=== PATIENT | male | born 1995 | race Caucasian/White ===

== ENCOUNTER 2017-07-26 21:44 | Emergency (ER) | payer MEDICAID ==
[~2017-07-26] VITALS: Ht 188 cm; Wt 60.0 kg
[~2017-07-26 21:44] MED LIST: BENT20TA PO; PANT20 PO; PROM25TA5 PO
[2017-07-26 21:46] VITALS: BP 116/70; PULSE 95; RESP 16; TEMP 99.3; O2SAT 98
--- NOTE | 2017-07-26 23:38 | RADRPT ---
EXAM DATE/TIME: 07/26/2017 23:39 [place] COMPARISON: No previous studies available for comparison. INDICATIONS : Chest pain. MEDICAL HISTORY : None. SURGICAL HISTORY : None. ENCOUNTER: Initial ACUITY: 1 day PAIN SCORE: 7/10 LOCATION: Bilateral chest FINDINGS: PA and lateral views of the chest demonstrate the lungs to be symmetrically aerated without evidence of mass, infiltrate or effusion. The cardiomediastinal contours are unremarkable. Osseous structure s are intact. CONCLUSION: No acute disease. Keenan Irene MD on July 26, 2017 at 23:36 Board Certified Radiologist. This report was verified electronically.
[2017-07-26 23:50] VITALS: BP 122/75; PULSE 86; RESP 18; O2SAT 98
[2017-07-26 23:56] VITALS: RESP 16; O2SAT 99
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
[2017-07-27 00:19] LABS: AUTOMATED NEUTROPHIL # 13.5 TH/MM3 (1.8-7.7); BASOPHIL # 0.1 TH/MM3 (0-0.2); BASOPHIL % 0.6 % (0.0-2.0); EOSINOPHIL # 0.1 TH/MM3 (0-0.4); EOSINOPHIL % 0.7 % (0.0-4.0); HEMATOCRIT 46.8 % (39.0-51.0); HEMO FLAGS DIFF FINAL; LYMPH % 12.5 % (9.0-44.0); LYMPHOCYTE # 2.1 TH/MM3 (1.0-4.8); MEAN CELL VOLUME 92.1 FL (80.0-100.0); MEAN CORPUSCULAR HEMOGLOBIN 31.6 PG (27.0-34.0); MEAN CORPUSCULAR HGB CONC 34.3 % (32.0-36.0); MONO % 5.6 % (0.0-8.0); NEUT % 80.6 % (16.0-70.0); PLATELET COUNT 199 TH/MM3 (150-450); RED BLOOD COUNT 5.09 MIL/MM3 (4.50-5.90); RED CELL DISTRIBUTION WIDTH 13.4 % (11.6-17.2); WHITE BLOOD COUNT 16.8 TH/MM3 (4.0-11.0)
[2017-07-27 00:22] LABS: ANION GAP 7 MEQ/L (5-15); BICARBONATE 28.4 MEQ/L (21.0-32.0); BLOOD UREA NITROGEN 8 MG/DL (7-18); CHLORIDE 105 MEQ/L (98-107); GLOMERULAR FILTRATION RATE 92 ML/MIN (>89); SODIUM (NA) 140 MEQ/L (136-145)
[2017-07-27] MEDS ORDERED: DICL75TA PO (00:41)
[2017-07-27] MEDS ORDERED: AZIT250T3 PO (00:41)
--- NOTE | 2017-07-27 09:57 | EKG ---
Date Performed: 07/26/2017 Time Performed: 22:12:16 PTAGE: 21 years EKG: Sinus rhythm NONSPECIFIC T-WAVE ABNORMALITY BORDERLINE ECG PREVIOUS TRACING : 12/23/2013 08.49 Compared to the prior study, nonspecific T-wave changes are now present. DOCTOR: Angus Hampton Interpretating Date/Time 07/27/2017 09:55:38
[2017-07-28] MEDS ORDERED: ZYPR5TAB PO (12:03)
[2017-07-28] MEDS ORDERED: VIST50CA PO (12:04)
== END 2017-07-27 01:03 | disposition home or self-care (01) ==
LOC: NEPD 21:44
DX: R09.1 Pleurisy (principal); R94.31 Abnormal electrocardiogram [ECG] [EKG]
CPT/HCPCS: 71020; 80048; 83690; 83735; 84484; 85025; 85379; 93005

== ENCOUNTER 2017-07-27 11:31 | Emergency (ER) | payer MEDICAID, OTHER ==
[~2017-07-27 11:31] MED LIST changes: +AZIT250T3 PO; -BENT20TA PO; +DICL75TA PO; -PANT20 PO; -PROM25TA5 PO
[2017-07-27 11:38] VITALS: BP 110/66; PULSE 106; RESP 16; TEMP 98.1; O2SAT 96
[2017-07-27 12:20] LABS: AUTOMATED NEUTROPHIL # 12.8 TH/MM3 (1.8-7.7); BASOPHIL % 0.2 % (0.0-2.0); EOSINOPHIL # 0.2 TH/MM3 (0-0.4); EOSINOPHIL % 1.6 % (0.0-4.0); HEMATOCRIT 48.2 % (39.0-51.0); HEMO FLAGS DIFF FINAL; LYMPH % 11.7 % (9.0-44.0); LYMPHOCYTE # 1.9 TH/MM3 (1.0-4.8); MEAN CELL VOLUME 92.6 FL (80.0-100.0); MEAN CORPUSCULAR HEMOGLOBIN 31.4 PG (27.0-34.0); MEAN CORPUSCULAR HGB CONC 33.9 % (32.0-36.0); NEUT % 80.5 % (16.0-70.0); PLATELET COUNT 220 TH/MM3 (150-450); RED BLOOD COUNT 5.21 MIL/MM3 (4.50-5.90); RED CELL DISTRIBUTION WIDTH 13.1 % (11.6-17.2); WHITE BLOOD COUNT 15.9 TH/MM3 (4.0-11.0)
[2017-07-27 12:26] LABS: BICARBONATE 26.4 MEQ/L (21.0-32.0); POTASSIUM 3.6 MEQ/L (3.5-5.1)
--- NOTE | 2017-07-27 12:55 | PD ---
HPI Chief Complaint: Psychiatric Symptoms Time Seen by Provider: 11:56 Travel History International Travel<30 days: No Contact w/Intl Traveler<30days: No Traveled to known affect area: No History of Present Illness HPI 21-year-old male brought in under [employer] act for making suicidal statements to his mother. Patient has history of bipolar, anxiety, ADHD. She reports he's been off his meds for over a year. He reports this morning he went to see a new doctor to attempt to go back on his psychiatric medications, but the visit apparently didn't go well causing him to become angry and make statements that he "wanted to shoot himself". Patient denies suicidal ideation during my interview. He states he made this statement because he was angry. [facility], [facility] Past Medical History ADD: Yes ADHD: Yes (ADHD) Bipolar Disorder: Yes Anxiety: Yes Cardiovascular Problems: Yes (heart murmur) Diabetes: No Medical other: Yes (STATES TREATED LAST NIGHT FOR CHEST PAIN) Psychiatric: Yes (PT STATES BIPOLAR AND ADHD) Immunizations Current: Yes Seizures: No Thyroid Disease: No Ulcer: No Past Surgical History Other Surgery: Yes (RIGHT INDEX FINGER PRIOR SX FOR REATTACHMENT AT AGE 9) Social History Alcohol Use: No Tobacco Use: Yes Substance Use: Yes (MARIJUANA) Allergies-Medications (Allergen,Severity, Reaction): Coded Allergies: red dye (Verified Allergy, Unknown, 07/27/17) Reported Meds & Prescriptions Reported Meds & Active Scripts Active Azithromycin 250 Mg Tab 250 Mg PO DIRECTED Take 2 tabs (500 mg) on day 1 then 1 tab daily x [address] (Diclofenac Sodium) 75 Mg Tabdr 75 Mg PO BID PRN Review of Systems Except as stated in HPI: all other systems reviewed are Neg Physical Exam Narrative GENERAL: Well-nourished, well-developed patient. SKIN: Focused skin assessment warm/dry. HEAD: Normocephalic. EYES: No scleral icterus. No injection or drainage. NECK: Supple, trachea midline. No JVD or lymphadenopathy. CARDIOVASCULAR: Regular rate and rhythm without murmurs, gallops, or rubs. RESPIRATORY: Breath sounds equal bilaterally. No accessory muscle use. GASTROINTESTINAL: Abdomen soft, non-tender, nondistended. MUSCULOSKELETAL: No cyanosis, or edema. BACK: Nontender without obvious deformity. No CVA tenderness. PSYCHIATRIC: No delusional thought processes. No hallucinations. Data Data Last Documented VS Vital Signs Date Time Temp Pulse Resp B/P (MAP) Pulse Ox O2 Delivery O2 Flow Rate FiO2 07/27/17 17:30 80 18 116/70 (85) 96 Room Air 07/27/17 11:38 98.1 Orders Orders Complete Blood Count With Diff (07/27/17 11:37) Psych Screen (07/27/17 11:37) Drug Screen, Random Urine (07/27/17 11:37) Basic Metabolic Panel (Bmp) (07/27/17 11:37) Diet Regular Basic (07/27/17 Dinner) Hydroxyzine Pamoate (Vistaril) (07/27/17 18:15) Olanzapine (Zyprexa) (07/27/17 18:45) Labs Laboratory Tests Test 07/27/17 11:45 07/27/17 11:47 White Blood Count 15.9 TH/MM3 Red Blood Count 5.21 MIL/MM3 Hemoglobin 16.4 GM/DL Hematocrit 48.2 % Mean Corpuscular Volume 92.6 FL Mean Corpuscular Hemoglobin 31.4 PG Mean Corpuscular Hemoglobin Concent 33.9 % Red Cell Distribution Width 13.1 % Platelet Count 220 TH/MM3 Mean Platelet Volume 9.5 FL Neutrophils (%) (Auto) 80.5 % Lymphocytes (%) (Auto) 11.7 % Monocytes (%) (Auto) 6.0 % Eosinophils (%) (Auto) 1.6 % Basophils (%) (Auto) 0.2 % Neutrophils # (Auto) 12.8 TH/MM3 Lymphocytes # (Auto) 1.9 TH/MM3 Monocytes # (Auto) 0.9 TH/MM3 Eosinophils # (Auto) 0.2 TH/MM3 Basophils # (Auto) 0.0 TH/MM3 CBC Comment DIFF FINAL Differential Comment Blood Urea Nitrogen 7 MG/DL Creatinine 1.00 MG/DL Random Glucose 102 MG/DL Calcium Level 9.0 MG/DL Sodium Level 138 MEQ/L Potassium Level 3.6 MEQ/L Chloride Level 105 MEQ/L Carbon Dioxide Level 26.4 MEQ/L Anion Gap 7 MEQ/L Estimat Glomerular Filtration Rate 96 ML/MIN Urine Opiates Screen NEG Urine Barbiturates Screen NEG Urine Amphetamines Screen NEG Urine Benzodiazepines Screen NEG Urine Cocaine Screen NEG Urine Cannabinoids Screen POS MDM Medical Decision Making Medical Screen Exam Complete: Yes Emergency Medical Condition: Yes Differential Diagnosis suicidal ideation, electrolyte abnormality, mood disorder Narrative Course 21-year-old male brought in under O[employer]a act for making suicidal statements to his mother. Patient has history of bipolar, anxiety, ADHD. She reports he's been off his meds for over a year. He reports this morning he went to see a new doctor to attempt to go back on his psychiatric medications, but the visit apparently didn't go well causing him to become angry and make statements that he "wanted to shoot himself". Patient denies suicidal ideation during my interview. He states he made this statement because he was angry. Patient denies any medical complaint. Patient will be evaluated in the emergency department and once medically cleared will receive psychiatric screening. Patient is agreeable to this plan. CBC: WBC 15 which is down from 16.4 yesterday when patient was seen for pleurisy CMP: Unremarkable Tox screen: Positive for cannabis Patient is medically cleared. Sera Jewell Jul 27, 2017 12:55
[2017-07-27 17:30] VITALS: BP 116/70; PULSE 80; RESP 18; O2SAT 96
[2017-07-27] MEDS ORDERED: OLANZapine 5 MG TAB PO ONE (18:45)
[2017-07-28 06:17] VITALS: BP 124/56; PULSE 82; RESP 18; O2SAT 99
--- NOTE | 2017-07-28 12:01 | PD ---
History of Present Illness Chief Complaint: Psychiatric Symptoms Time Seen by Provider: 11:30 Travel History International Travel<30 Days: No Contact w/Intl Traveler<30days: No Known affected area: No Legal Status Legal Status: Ochoa Act Ochoa Act Signed By: Michael Melendrez Ochoa Act Comment: BA signed by: DULCE PLASCENCIA Badge#[id number], Case#[id number], 07/27/17, 1055am History of Present Illness: 21-year-old male brought in under a Ochoa act for threatening to shoot himself. Currently, patient denies any suicidal or homicidal ideation, plan or intent. He is calm, pleasant and cooperative. His cognition is intact and he has no psychotic symptoms. He is willing to return to the outpatient psychiatrist for future treatment. He is verbally filiberto for safety and he is competent to do so. He states the medicines he took last night were helpful to him and he would like prescriptions for them. This physician provided those prescriptions with informed consent. PFSH Past Medical History ADD: Yes ADHD: Yes (ADHD) Bipolar Disorder: Yes Anxiety: Yes Cardiovascular Problems: Yes (heart murmur) Diabetes: No Medical other: Yes (STATES TREATED LAST NIGHT FOR CHEST PAIN) Psychiatric: Yes (PT STATES BIPOLAR AND ADHD) Immunizations Current: Yes Seizures: No Thyroid Disease: No Ulcer: No Past Surgical History Other Surgery: Yes (RIGHT INDEX FINGER PRIOR SX FOR REATTACHMENT AT AGE 9) Psychiatric History Psychiatric History Hx Psychiatric Treatment: Advises he was admitted to [facility] as a teen, cannot say why. This physician sees no significant objective clinical evidence of bipolar disorder or other mood disorders at this time. History of Inpatient Treatment: Yes Guns or firearms in home: Yes Social History Hx Alcohol Use: No Hx Tobacco Use: Yes Hx Substance Use: No Other Substances Used: Pt admits to using marijuana Hx of Substance Use Treatment: No Allergies-Medications (Allergen,Severity, Reaction): Coded Allergies: red dye (Verified Allergy, Unknown, 07/27/17) Reported Meds & Prescriptions Reported Meds & Active Scripts Active Azithromycin 250 Mg Tab 250 Mg PO DIRECTED Take 2 tabs (500 mg) on day 1 then 1 tab daily x [address] (Diclofenac Sodium) 75 Mg Tabdr 75 Mg PO BID PRN Review of Systems Except as stated in HPI: all other systems reviewed are Neg Mental Status Examination Appearance: Appropriate Consciousness: Alert Orientation: x4 Motor Activity: Normal gait Speech: Unremarkable Language: Adequate Fund of Knowledge: Adequate Attention and Concentration: Adequate Memory: Unremarkable Mood: Appropriate Affect: Appropriate Thought Process & Associations: Intact Thought Content: Appropriate Hallucination Type: None Delusion Type: None Suicidal Ideation: No Suicidal Plan: No Suicidal Intention: No Homicidal Ideation: No Homicidal Plan: No Homicidal Intention: No Insight: Adequate Judgment: Adequate MDM Medical Decision Making Medical Record Reviewed: Yes Assessment/Plan Patient interviewed at bedside, medical record reviewed and case discussed with nurse Romaine. Patient's mother has also been contacted and feels safe taking him home. His gun has been locked up in his grandfather safe. Patient is willing to accept further treatment and denies any suicidal or homicidal ideation, plan or intent. Least restrictive alternative applies and this physician is giving the patient Zyprexa and Vistaril to assist with his anxiety and anger issues. Orders Orders Diet Regular Basic (07/27/17 Dinner) Hydroxyzine Pamoate (Vistaril) (07/27/17 18:15) Olanzapine (Zyprexa) (07/27/17 18:45) Diet Regular Basic (07/28/17 Breakfast) Diet Regular Basic (07/28/17 Lunch) Results Vital Signs Date Time Temp Pulse Resp B/P (MAP) Pulse Ox O2 Delivery O2 Flow Rate FiO2 07/28/17 06:17 82 18 124/56 (78) 99 Room Air 07/27/17 17:30 80 18 116/70 (85) 96 Room Air Diagnosis Primary Impression: Adjustment disorder with mixed disturbance of emotions and conduct Thanh Martinez MD Jul 28, 2017 12:01
[2017-07-28] MEDS ORDERED: ZYPR5TAB PO (12:03)
[2017-07-28] MEDS ORDERED: VIST50CA PO (12:04)
--- NOTE | 2017-07-28 12:21 | PD ---
Physical Exam Date Seen by Provider: Jul 28, 2017 Time Seen by Provider: 12:20 Data Data Last Documented VS Vital Signs Date Time Temp Pulse Resp B/P (MAP) Pulse Ox O2 Delivery O2 Flow Rate FiO2 07/28/17 06:17 82 18 124/56 (78) 99 Room Air 07/27/17 11:38 98.1 Orders Orders Complete Blood Count With Diff (07/27/17 11:37) Psych Screen (07/27/17 11:37) Drug Screen, Random Urine (07/27/17 11:37) Basic Metabolic Panel (Bmp) (07/27/17 11:37) Diet Regular Basic (07/27/17 Dinner) Hydroxyzine Pamoate (Vistaril) (07/27/17 18:15) Olanzapine (Zyprexa) (07/27/17 18:45) Diet Regular Basic (07/28/17 Breakfast) Diet Regular Basic (07/28/17 Lunch) Labs Laboratory Tests Test 07/27/17 11:45 07/27/17 11:47 White Blood Count 15.9 TH/MM3 Red Blood Count 5.21 MIL/MM3 Hemoglobin 16.4 GM/DL Hematocrit 48.2 % Mean Corpuscular Volume 92.6 FL Mean Corpuscular Hemoglobin 31.4 PG Mean Corpuscular Hemoglobin Concent 33.9 % Red Cell Distribution Width 13.1 % Platelet Count 220 TH/MM3 Mean Platelet Volume 9.5 FL Neutrophils (%) (Auto) 80.5 % Lymphocytes (%) (Auto) 11.7 % Monocytes (%) (Auto) 6.0 % Eosinophils (%) (Auto) 1.6 % Basophils (%) (Auto) 0.2 % Neutrophils # (Auto) 12.8 TH/MM3 Lymphocytes # (Auto) 1.9 TH/MM3 Monocytes # (Auto) 0.9 TH/MM3 Eosinophils # (Auto) 0.2 TH/MM3 Basophils # (Auto) 0.0 TH/MM3 CBC Comment DIFF FINAL Differential Comment Blood Urea Nitrogen 7 MG/DL Creatinine 1.00 MG/DL Random Glucose 102 MG/DL Calcium Level 9.0 MG/DL Sodium Level 138 MEQ/L Potassium Level 3.6 MEQ/L Chloride Level 105 MEQ/L Carbon Dioxide Level 26.4 MEQ/L Anion Gap 7 MEQ/L Estimat Glomerular Filtration Rate 96 ML/MIN Urine Opiates Screen NEG Urine Barbiturates Screen NEG Urine Amphetamines Screen NEG Urine Benzodiazepines Screen NEG Urine Cocaine Screen NEG Urine Cannabinoids Screen POS MDM Medical Record Reviewed: Yes Supervised Visit with MARY: Yes Narrative Course 21-year-old male with history of ADHD, anxiety, and bipolar disorder presented previously to the emergency room under Ochoa act for making suicidal comments to his mother. He denied any medical complaints. States he feels well and would like to go home. Denies suicidal ideation when speaking with me. He was seen and evaluated by psychiatrist and his Ochoa act was lifted. Patient will follow up per psychiatrist recommendations. Diagnosis Primary Impression: Adjustment disorder with mixed disturbance of emotions and conduct Scripts Hydroxyzine Pamoate (Vistaril) 50 Mg Cap 50 MG PO HS for Anxiety, #30 CAP 0 Refills Prov: Thanh Martinez MD 07/28/17 Olanzapine (Zyprexa) 5 Mg Tab 5 MG PO DAILY for Asthma Management, #30 TAB 0 Refills Prov: Thanh Martinez MD 07/28/17 Disposition: 01 DISCHARGE HOME Condition: Stable [address] Jul 28, 2017 12:21
[2017-07-28 12:52] VITALS: BP 115/61; PULSE 82; RESP 18; O2SAT 99
== END 2017-07-28 12:57 | disposition home or self-care (01) ==
LOC: NEPD 11:31 → UNDOADMIN 07-28 12:06 → NEDA 07-28 12:06
DX: F43.25 Adjustment disorder with mixed disturbance of emotions and conduct (principal); F41.9 Anxiety disorder, unspecified; F90.9 Attention-deficit hyperactivity disorder, unspecified type; F12.90 Cannabis use, unspecified, uncomplicated; Z72.0 Tobacco use
CPT/HCPCS: 80048; 80307; 85025

== ENCOUNTER → 2018-02-25 | Outpatient (CLI) | payer MEDICAID ==
[~2018-02-25] MED LIST changes: +VIST50CA PO; +ZYPR5TAB PO
--- NOTE | 2018-02-25 17:20 | EKG ---
Date Performed: 02/25/2018 Time Performed: 12:20:12 PTAGE: 22 years EKG: Sinus bradycardia Rightward axis Inferior and anterior T wave changes are nonspecific Borde rline ECG PREVIOUS TRACING : 07/26/2017 22.12 Since the previous tracing, no significant change noted DOCTOR: Usha Marshall Interpretating Date/Time 02/25/2018 17:18:26
== END ==
LOC: HCAV 12:10
DX: F31.10 Bipolar disorder, current episode manic without psychotic features, unspecified (principal); F90.2 Attention-deficit hyperactivity disorder, combined type; F42.2 Mixed obsessional thoughts and acts; R00.1 Bradycardia, unspecified
CPT/HCPCS: 93005